=== PATIENT | female | born 1955 | race Caucasian/White ===

== ENCOUNTER 2017-07-25 10:22 | Day surgery (SDC) | payer OTHER ==
[2017-07-22 12:32] VITALS: BMI 57.9
[~2017-07-25 10:22] MED LIST: Propofol 200 MG/20 ML VIAL ONE
--- NOTE | 2017-07-25 15:09 | OP ---
DATE OF PROCEDURE: 07/25/2017 PREOPERATIVE DIAGNOSIS: Colon cancer screening. PROCEDURE IN DETAIL: Informed consent was obtained from the patient. She was sedated with total int ravenous anesthesia. The rectal exam was performed and was normal. The preparation quality was exce llent. The colonoscope was advanced to the cecum where the ileocecal valve and appendiceal orifice w ere clearly identified. A 5 mm sessile polyp was removed from the transverse colon. The remainder o f the colonic mucosa was normal. Retroflexed views in the rectum were normal. IMPRESSION: 1. A 5 mm polyp removed from the transverse colon by cold snare. 2. Otherwise normal colonoscopy. RECOMMENDATIONS: 1. Await histopathology. 2. Repeat colonoscopy in five years if the polyp is an adenoma. Repeat in 10 years if it is hyperpl astic or normal. Repeat in 3 years if the polyp has a villous or serrated component.
== END 2017-07-25 15:03 | disposition home or self-care (01) ==
LOC: SDC 10:22
PROVIDERS: ATTEND Internal Medicine Gastroenterology
PROC: 0DBL8ZX Excision of Transverse Colon, Via Natural or Artificial Opening Endoscopic, Diagnostic (ICD-10-PCS; principal; 2017-07-25)
DX: Z12.11 Encounter for screening for malignant neoplasm of colon (principal); D12.3 Benign neoplasm of transverse colon; I10 Essential (primary) hypertension; E11.9 Type 2 diabetes mellitus without complications; E66.01 Morbid (severe) obesity due to excess calories; E55.9 Vitamin D deficiency, unspecified; Z68.43 Body mass index [BMI] 50.0-59.9, adult; Z79.84 Long term (current) use of oral hypoglycemic drugs; Z79.899 Other long term (current) drug therapy; Z91.048 Other nonmedicinal substance allergy status; Z90.49 Acquired absence of other specified parts of digestive tract; Z90.710 Acquired absence of both cervix and uterus; Z98.890 Other specified postprocedural states; Z85.42 Personal history of malignant neoplasm of other parts of uterus; Z83.79 Family history of other diseases of the digestive system
CPT/HCPCS: 88305; J2704